=== PATIENT | male | born 1960 | race Two or more races ===

== ENCOUNTER 2018-02-26 22:02 | Emergency (ER) | payer OTHER ==
[~2018-02-26] VITALS: Ht 167.6 cm; Wt 83.9 kg
[2018-02-26] MEDS ORDERED: ONDANSETRON ODT 4 MG TAB PO ONE (22:30)
[2018-02-26 23:31] LABS: Basophils # (auto) 0 uL; Basophils % (auto) 0.1 % (0.0-2.0); Eosinophils # (auto) 0 uL; Hematocrit 44.9 % (41.0-53.0); Lymphocytes # (auto) 1.6 uL; Lymphocytes % (auto) 16.1 % (10.0-50.0); Mean Corpuscular Hemoglobin 31.8 pg (28.0-32.0); Mean Corpuscular Hgb Conc. 35.6 g/dL (32.0-36.0); Mean Corpuscular Volume 89.4 fL (80.0-100.0); Monocytes # (auto) 0.7 uL; Monocytes % (auto) 6.8 % (0.0-12.0); Neutrophils # (auto) 7.4 uL; Nucleated Red Blood Cells % 0.1 %; Platelet Count (auto) 258 10^3/uL (140-450); Red Blood Cells 5.02 10^6/uL (4.5-5.90); Red Cell Distribution Width 12.9 % (11.8-14.3); White Blood Cell 9.6 10^3/uL (4.4-10.8)
[2018-02-26 23:41] LABS: Chloride 98 mmol/L (98-107); Sodium 129 mmol/L (136-145)
[2018-02-26 23:48] LABS: Alanine Aminotransferase 49 U/L (16-61); Albumin 3.8 g/dL (3.4-5.0); Anion Gap 10 (5-15); Aspartate Aminotransferase 24 U/L (15-37); Blood Urea Nitrogen 20 mg/dL (7-18); Calcium 9.2 mg/dL (8.5-10.1); Carbon Dioxide 21 mmol/L (21-32); GFR African American 99 mL/min; GFR Non-African American 82 mL/min; Glucose 136 mg/dL (74-106); Magnesium 2.6 mg/dL (1.6-2.6)
[2018-02-26 23:52] LABS: Alkaline Phosphatase 91 U/L (45-117); Bilirubin, Total 0.9 mg/dL (0.2-1.0); Total Protein 8.4 g/dL (6.4-8.2)
[2018-02-26] MEDS ORDERED: ACETAMINOPHEN 325 MG TAB PO ONE (23:58)
[2018-02-27] MEDS ORDERED: ACETAMINOPHEN 325 MG TAB PO ONE
[2018-02-27 06:30] LABS: Urine Bacteria NONE SEEN /hpf (None Seen); Urine Blood TRACE /uL (Negative); Urine Specific Gravity 1.025 (1.001-1.035); Urine WBC <1 /hpf (0 - 3)
[2018-02-27 07:30] VITALS: BP 139/88
== END 2018-02-27 07:17 | disposition home or self-care (01) ==
LOC: ER 22:31
DX: R51 Headache (principal); I10 Essential (primary) hypertension
CPT/HCPCS: 36415; 70450; 71045; 80053; 81001; 83735; 84484; 85025; 93005